=== PATIENT | female | born 2000 | race African-American/Black ===

== ENCOUNTER 2022-10-01 11:04 | Emergency (ER) | payer OTHER ==
[2022-10-01 11:14] VITALS: BP 97/56; PULSE 73; RESP 18; TEMP 97.9; BMI 18.3
[2022-10-01] MEDS ORDERED: ACETAMINOPHEN 500 MG TABLET (FP) PO ONE (11:30)
[2022-10-01] MEDS ORDERED: ACETAMINOPHEN 500 MG TABLET (FP) ONE (11:35)
== END 2022-10-01 12:47 | disposition home or self-care (01) ==
LOC: FER 11:04 → SUPCPDRO 11:04 → FER 12:47
DX: M54.2 Cervicalgia (principal); V49.40XA Driver injured in collision with unspecified motor vehicles in traffic accident, initial encounter; Y93.I9 Activity, other involving external motion
CPT/HCPCS: 72050-TC-FY; 99283-25